=== PATIENT | female | born 1975 | race Caucasian/White ===

== ENCOUNTER 2019-01-17 14:40 | Emergency (ER) | payer BC ==
--- NOTE | 2019-01-17 15:56 | ED ---
Hypertension - HPI Summary HPI Summary: Pt is a 43 y/o F presenting to the ED with a chief complaint of HTN. She states that she has hx of atrial flutter as well as a cardiac ablation. On 01/15/19, she experienced an episode of lightheadedness and dizziness, and her BP was 150/ 110, but her HR was 145. She called her PCP who states she would not be able to get an appointment until next Sunday, and they recommended her to go to the ED. Since her ablation, Dr. Larkin stated she may have to go on a beta sher at some point, but she is not currently taking one. She denies N/V/D, weight change, fever, or CP. She has no other medical problems, and currently takes Prilosec daily. She weaned off of Celexa 2 months ago. Pt's medications reviewed, allergies noted. - History of Current Complaint Chief Complaint: EDHypertension Stated Complaint: HIGH BLOOD PRESSURE Time Seen by Provider: 01/17/19 15:36 Hx Obtained From: Patient Onset/Duration: Started Days Ago, Resolved - currently asymptomatic Timing: Intermittent, Lasting Hours Aggravating Factor(s): Nothing Alleviating Factor(s): Nothing Associated Signs & Symptoms: Dizziness - Allergies/Home Medications Allergies/Adverse Reactions: Allergies Allergy/AdvReac Type Severity Reaction Status Date / Time No Known Allergies Allergy Verified 01/17/19 14:58 PMH/Surg Hx/FS Hx/Imm Hx Previously Healthy: Yes Cardiovascular History: Reports: Other Cardiovascular Problems/Disorders - cardiac ablation for a-flutter Denies: Hx Pacemaker/ICD GI History: Reports: Hx Gastroesophageal Reflux Disease - ON MEDICATIONS Musculoskeletal History: Reports: Hx Back Problems Sensory History: Denies: Hx Contacts or Glasses, Hx Hearing Aid Opthamlomology History: Denies: Hx Contacts or Glasses Neurological History: Denies: Other Neuro Impairments/Disorders - PAIN CLINIC PT Psychiatric History: Reports: Hx Depression - ON MEDICATION Denies: Hx Panic Disorder - Surgical History Surgery Procedure, Year, and Place: 2002 ROTATOR CUFF REPAIR RIGHT SHOULDER, [place]. 2011 CARDIAC ABLATION, [facility]. TUBAL LIGATION 2013 Hx Anesthesia Reactions: Yes - NAUSEA Infectious Disease History: No Infectious Disease History: Denies: Traveled Outside the [place] in Last 30 Days - Family History Known Family History: Negative: Respiratory Disease - Social History Alcohol Use: Occasionally Alcohol Amount: 4-6 Hx Substance Use: No Substance Use Type: Reports: None Hx Tobacco Use: No Smoking Status (MU): Never Smoked Tobacco Review of Systems Negative: Fever, Other - weight change Negative: Chest Pain Negative: Vomiting, Diarrhea, Nausea Neurological: Other - dizziness, lightheadedness All Other Systems Reviewed And Are Negative: Yes Physical Exam - Summary Physical Exam Summary: Constitutional: Well-developed, Well-nourished, Alert. (-) Distressed Skin: Warm, Dry HENT: Normocephalic; Atraumatic Eyes: Conjunctiva normal Neck: Musculoskeletal ROM normal neck. (-) JVD, (-) Stridor, (-) Tracheal deviation Cardio: Rhythm regular, rate normal, Heart sounds normal; Intact distal pulses; The pedal pulses are 2+ and symmetric. Radial pulses are 2+ and symmetric. (-) Murmur Pulmonary/Chest wall: Effort normal. (-) Respiratory distress, (-) Wheezes, (-) Rales Abd: Soft, (-) tenderness, (-) Distension, (-) Guarding, (-) Rebound Musculoskeletal: (-) Edema Lymph: (-) Cervical adenopathy Neuro: Alert, Oriented x3 Psych: Mood and affect Normal Triage Information Reviewed: Yes Vital Signs On Initial Exam: Initial Vitals Temp Pulse Resp BP Pulse Ox 98.5 F 100 16 187/129 99 01/17/19 14:54 01/17/19 14:54 01/17/19 14:54 01/17/19 14:54 01/17/19 14:54 Vital Signs Reviewed: Yes Diagnostics - Vital Signs Vital Signs Temp Pulse Resp BP Pulse Ox 01/17/19 14:54 98.5 F 100 16 187/129 99 - Laboratory Result Diagrams: 01/17/19 15:59 01/17/19 15:59 Lab Statement: Any lab studies that have been ordered have been reviewed, and results considered in the medical decision making process. Hypertension Course/Dx - Course Course Of Treatment: Patient is here with possible episode of atrial flutter. Patient has a history of atrial flutter status post ablation 5 years ago. Patient's heart was 140 on Sunday which is consistent with flutter. Patient was in a normal sinus rhythm here. Patient had blood performed which was grossly unremarkable. Patient started on metoprolol. Patient's follow up with her primary care doctor on Sunday for further management and evaluation. - Diagnoses Provider Diagnoses: HTN (hypertension), Atrial flutter Discharge ED - Sign-Out/Discharge Documenting (check all that apply): Patient Departure - discharge Patient Received Moderate/Deep Sedation with Procedure: No - Discharge Plan Condition: Stable Disposition: HOME Prescriptions: Metoprolol Succinate XL TAB* [Toprol XL TAB*] 50 mg PO DAILY 30 Days #30 tab.xl Patient Education Materials: Atrial Flutter (ED), Chronic Hypertension (ED) Referrals: Patrick Larkin MD [Medical Doctor] - Balbir ELY,Nicho Hammonds [Primary Care Provider] - 01/22/19 Additional Instructions: TAKE MEDICATIONS PRESCRIBED. RETURN TO THE EMERGENCY DEPARTMENT IF YOUR HEART RATE GOES ABOVE 140 BPM AND FOR ANY NEW OR WORSENING SYMPTOMS. FOLLOW UP WITH YOUR PRIMARY CARE PROVIDER ON SUNDAY - Billing Disposition and Condition Condition: STABLE Disposition: Home - Attestation Statements Document Initiated by Scribe: Yes Documenting Scribe: Ant Whitmore Provider For Whom Hui is Documenting (Include Credential): Gary Pena MD. Scribe Attestation: IIvory Marco DiSanto, scribed for Gary Pena MD. on 01/17/19 at 1822. Scribe Documentation Reviewed: Yes Provider Attestation: The documentation as recorded by the scribe, Ant Whitmore accurately reflects the service I personally performed and the decisions made by , Gary Pena MD. Status of Scribe Document: Viewed
[2019-01-17 16:07] LABS: ABS Lymphocytes 1.3 10^3/ul (1.0-4.8); ABS Monocytes 0.6 10^3/ul (0-0.8); ABS Neutrophils 3.4 10^3/ul (1.5-7.7); Eosinophil % 0.7 %; Hematocrit 37 % (35-47); Hemoglobin 12.7 g/dL (12.0-16.0); Lymphocyte % 24.9 %; Mean Corpuscular HGB Conc 34 g/dL (31-36); Mean Corpuscular Hemoglobin 34 pg (27-31); Mean Corpuscular Volume 99 fL (80-97); Mean Platelet Volume 7.5 fL (7.4-10.4); Platelet Count 221 10^3/uL (150-450); Red Blood Count 3.77 10^6 /uL (3.70-4.87); Red Cell Distribution Width 12 % (10-15); White Blood Count 5.4 10^3/uL (3.5-10.8)
[2019-01-17 16:39] LABS: Albumin 4.3 g/dL (3.2-5.2); Albumin/Globulin Ratio 1.5 (1-3); BUN/Creatinine Ratio 24.4 (8-20); Calcium 9.2 mg/dL (8.6-10.3); EGFR African American 182.3 (>60); EGFR Non-African American 150.7 (>60); Globulin 2.9 g/dL (2-4); Magnesium 1.6 mg/dL (1.9-2.7); Potassium 3.8 mmol/L (3.5-5.0); Total Bilirubin 0.5 mg/dL (0.2-1.0); Total Protein 7.2 g/dL (6.4-8.9)
[2019-01-17 16:49] LABS: TSH (Thyroid Stimulating Horm) 1.66 mcIU/mL (0.34-5.60)
[2019-01-17 17:47] VITALS: BP 0/0
== END 2019-01-17 17:45 | disposition home or self-care (01) ==
LOC: ED 14:40
DX: I48.92 Unspecified atrial flutter (principal); I10 Essential (primary) hypertension; K21.9 Gastro-esophageal reflux disease without esophagitis; F32.9 Major depressive disorder, single episode, unspecified; Z79.899 Other long term (current) drug therapy
CPT/HCPCS: 36415; 80053; 83735; 84443; 85025; 93005; 99282